=== PATIENT | female | born 1945 | race Caucasian/White ===

== ENCOUNTER → 2021-03-14 10:30 | Outpatient (CLI) | payer MEDICARE, OTHER, SELFPAY ==
[2021-03-14 12:04] LABS: Erythrocyte Sedimentation Rate 4 MM/HR (0-20)
[2021-03-14 12:13] LABS: Add Manual Diff / Slide Review NO; Basophils Absolute Auto 0 /uL (0-100); Basophils Percent Auto 0.5 % (0-2); Eosinophils Absolute Auto 200 /uL (0-450); Eosinophils Percent Auto 1.9 % (2-4); Hematocrit 40.7 % (36-46); Hemoglobin 13.6 g/dL (12.0-16.0); Lymphocytes Absolute Auto 1300 /uL (1100-4500); Lymphocytes Percent Auto 15.5 % (25-40); Mean Corpuscular HGB Conc 33.5 % (30-36); Mean Corpuscular Hemoglobin 30.6 PG (26-34); Mean Corpuscular Volume 91.5 fL (80-100); Monocytes Absolute Auto 600 /uL (0-900); Monocytes Percent Auto 7.3 % (3-14); Neutrophils Absolute Auto 6500 /uL (1500-7000); Neutrophils Percent Auto 74.8 % (50-75); Platelet Count 219 X10^3/uL (150-400); Red Blood Cell Count 4.45 X10^6/uL (4.0-5.2); Red Cell Distribution Width 15.3 % (11.6-14.8); White Blood Cell Count 8.7 X10^3/uL (4.5-11.0)
[2021-03-14 13:05] LABS: Aspartate Aminotransferase 31 IU/L (14-36); BUN Creatinine Ratio 26.9 (6-22); Blood Urea Nitrogen 14 mg/dL (7-17); C-Reactive Protein Quant 0.7 mg/dL (<1.0); Calcium 9.5 mg/dL (8.4-10.2); Carbon Dioxide 33 mmol/L (22-32); Chloride 100 mmol/L (98-107); Estimated Glomerular Filt Rate > 60.0 mL/min (>60); Glucose 88 mg/dL (80-110); HEMOLYSIS < 15 (0-50); Potassium 4.1 mmol/L (3.4-5.1); Sodium 138 mmol/L (137-145)
[2021-03-15 05:26] LABS: Immunoglobulin A 86 mg/dL (64-422); Immunoglobulin G, Quantitative 798 mg/dL (586-1602); Immunoglobulin M, Quantitative 46 mg/dL (26-217)
== END ==
PROVIDERS: Referring Provider Internal Medicine Rheumatology; Visit Provider Internal Medicine Rheumatology
DX: M06.09 Rheumatoid arthritis without rheumatoid factor, multiple sites (principal); D64.9 Anemia, unspecified; R79.82 Elevated C-reactive protein (CRP); Z79.52 Long term (current) use of systemic steroids; Z79.899 Other long term (current) drug therapy
CPT/HCPCS: 36415; 80048; 82784; 84450; 85025; 85651; 86140

== ENCOUNTER 2021-07-19 09:47 | Emergency (ER) | payer MEDICARE, OTHER, SELFPAY ==
[2021-07-19 09:58] VITALS: BP 194/93; PULSE 102; RESP 16; TEMP 36.6; O2SAT 98; BMI 20.2
--- NOTE | 2021-07-19 10:42 | DI.RAD.S_ITS ---
PROCEDURE: XR LUMBAR SPINE 2-3V INDICATIONS: Lumbar pain history of compression fractures TECHNIQUE: 3 views of the lumbar spine were acquired. COMPARISON: No prior studies are available for review at the time of this dictation. FINDINGS: Bones: 5 [id number] vertebrae are present. There is moderate levoconvex lumbar scoliosis. No focal AP alignment abnormality is seen. No acute vertebral body compression fractures. Mild anterior wedge deformity can be seen of T12 and L1, approximately 10% loss of height at these levels. No suspicious bony lesions. Degenerative changes are seen throughout, with moderate to severe disc space narrowing seen at each lumbar level. Endplate irregularity and sclerosis are seen, which are worst involving the lower lumbar spine. Relatively prominent lower lumbar spine facet arthropathy is seen. Soft tissues: Overlying bowel gas pattern is normal. No suspicious soft tissue calcifications. IMPRESSION: No acute compression deformities can be seen. Mild anterior wedge deformities of T12 and L1 can be seen, without acute features. Moderate levoconvex scoliosis. Multiple levels of prominent lumbar spine degenerative change are seen by plain film. Dictated by: Gideon Stone M.D. on 07/19/2021 at 10:22 Approved by: Gideon Stone M.D. on 07/19/2021 at 10:24
--- NOTE | 2021-07-19 10:42 | ED.BACK ---
HPI - Back Pain/Injury General Chief Complaint: Back Pain/Injury Stated Complaint: back pain Time Seen by Provider: 07/19/21 10:06 Source: patient Mode of arrival: Family Vehicle Limitations: no limitations History of Present Illness HPI Narrative: Patient is a 75-year-old female. Has a history of arthritis. Has had compression fractures in the her back. Has had no recent falls. Over the past several months she has had back discomfort that that has led into muscle spasms. She was seen by her primary doctor. Was given a prescription for Robaxin. She states that the combination of her Robaxin and tramadol has been helping things somewhat however this morning she did not take these medications. She was sitting on the toilet. Was unable to get up because the discomfort. Decided to come to the emergency department. No urinary symptoms. No fevers. No change in bowel habits. No radiation into her legs. She states that her primary doctor has not discussed with her about further workup to include physical therapy or orthopedics or pain management. Related Data Home Medications Medication Instructions Recorded Confirmed One a day vitamin PO 03/25/21 07/15/21 Vitamin D3 300 IU PO DAILY 03/25/21 07/15/21 bone up PO 03/25/21 07/15/21 rituximab-abbs 10 mg/mL IV 03/25/21 07/15/21 intravenous solution vitamin c 200 IU PO 03/25/21 07/15/21 zinc 50 mg tablet 50 mg PO DAILY 03/25/21 07/15/21 Previous Rx's Medication Instructions Recorded benazepril 10 mg tablet 10 mg PO DAILY #90 tab 04/02/21 carvedilol 25 mg tablet 25 mg PO BID #180 tab 04/02/21 levothyroxine 100 mcg tablet 100 mcg PO DAILY #90 tab 04/02/21 prednisone 5 mg tablet 5 mg PO .AM #90 tab 04/02/21 gabapentin 300 mg capsule See Rx Instructions .ROUTE 06/25/21 .COMPLEX #240 cap prednisone 1 mg tablet See Rx Instructions .ROUTE 07/10/21 .COMPLEX #180 tab tramadol 50 mg tablet See Rx Instructions .ROUTE 07/10/21 .COMPLEX #60 tab methocarbamol 500 mg tablet See Rx Instructions PO TID #90 tab 07/15/21 Allergies Allergy/AdvReac Type Severity Reaction Status Date / Time Sulfa (Sulfonamide Allergy Mild Rashh Verified 07/15/21 10:28 Antibiotics) Review of Systems Constitutional Constitutional: Denies fever(s) Gastrointestinal Gastrointestinal: Reports as per HPI and Reports system reviewed and no additional complaints, except as documented Genitourinary Genitourinary: Reports system reviewed and no additional complaints, except as documented and Reports as per HPI Musculoskeletal Musculoskeletal: Reports system reviewed and no additional complaints, except as documented and Reports as per HPI Integumentary/Breasts Skin/Breast: Reports system reviewed and no additional complaints, except as documented Neurologic Neurologic: Reports system reviewed and no additional complaints, except as documented and Reports as per HPI Hematologic/Lymphatic On Anticoagulants: No Patient History Medical History Acne Alopecia (~1961) Sorto's esophagus (~2011) Chicken pox Chronic bilateral low back pain without sciatica Diastolic heart failure (~2016) Eczema (~2019) Foot pain (~1987) Heavy menstrual period HTN (hypertension) (~2009) Hypothyroidism (acquired) (~1969) Lumbar region somatic dysfunction Measles Pelvic somatic dysfunction Restless leg syndrome (~1999) Rheumatoid arthritis (~1987) Sacral region somatic dysfunction Segmental and somatic dysfunction of abdomen and other regions Shoulder pain (~1987) Skin cancer, basal cell (~2011) Thoracic region somatic dysfunction Surgical History (Updated 04/01/21 @ 22:06 by Macrina Foster) Anesthesia History of hysterectomy (~1973) History of thumb surgery History of tonsillectomy Family History (Updated 04/01/21 @ 22:08 by Macrina Foster) Father History of heart disease Hypertension Brother Cancer Sister Osteoarthritis Exam Initial Vital Signs Initial Vital Signs: Vital Signs Temperature 97.8 F 07/19/21 09:58 Pulse Rate 102 H 07/19/21 09:58 Respiratory Rate 16 07/19/21 09:58 Blood Pressure 194/93 H 07/19/21 09:58 Pulse Oximetry 98 07/19/21 09:58 Const General: cooperative and comfortable HENMT Head: normal to inspection and normocephalic Back/Spine/Pelvis Thoracic/Lumbar Spine: paraspinal tenderness (Lumbar) and No thoracic spinal tenderness Sacroiliac Joints: nontender Sacrum: no tenderness Skin General: no rashes or lesions noted Neuro General: patient alert, patient awake, patient oriented x3 and moves all extremities Extrem General: normal to inspection and capillary refill normal Psych Appearance: grossly normal and well kempt Course Orders Ordered: ED Orders 07/19/21 10:42 XR lumbar spine 2-3V Stat Vital Signs Vital signs: Vital Signs - 8 hr 07/19/21 11:47 Pulse Rate 89 Respiratory Rate 18 Pulse Oximetry 96 [facility] - Back Pain/Injury Imaging Data Lumbar spine x-ray: Radiologist's Impression: [address] [address] XRay Report Signed Patient: Julieta Pacheco MR#: [id number] : 1945 Acct:[id number] Age/Sex: 75 / F Date of Service: 07/19/21 Loc: ED Accession Number: [id number] ?? Procedure: XR lumbar spine 2-3V Ordering Provider: Kavin Roberts D.O. PROCEDURE:? XR LUMBAR SPINE 2-3V ? INDICATIONS:? Lumbar pain history of compression fractures ? TECHNIQUE:? 3 views of the lumbar spine were acquired.? ? COMPARISON:? No prior studies are available for review at the time of this dictation. ? FINDINGS:? ? Bones:? 5 [id number] vertebrae are present.? There is moderate levoconvex lumbar scoliosis.? No focal AP alignment abnormality is seen.? ? No acute vertebral body compression fractures.? Mild anterior wedge deformity can be seen of T12 and L1, approximately 10% loss of height at these levels.? No suspicious bony lesions.? ? Degenerative changes are seen throughout, with moderate to severe disc space narrowing seen at each lumbar level.? Endplate irregularity and sclerosis are seen, which are worst involving the lower lumbar spine.? Relatively prominent lower lumbar spine facet arthropathy is seen. ? Soft tissues:? Overlying bowel gas pattern is normal.? No suspicious soft tissue calcifications.? ? ? IMPRESSION:? No acute compression deformities can be seen. ? Mild anterior wedge deformities of T12 and L1 can be seen, without acute features. ? Moderate levoconvex scoliosis. ? Multiple levels of prominent lumbar spine degenerative change are seen by plain film. ? ? Dictated by: Gideon Stone M.D. on 07/19/2021 at 10:22 ? ? Approved by: Gideon Stone M.D. on 07/19/2021 at 10:24? MDM Narrative Medical decision making narrative: X-ray does not show any signs of acute pathology. I have low suspicion for cauda equina. No signs of fracture. Skin is unremarkable. I do suspect this is musculoskeletal etiology most likely from her underlying arthritis. I did discuss this with her. Will have her contact her primary doctor for a follow-up and to discuss further referrals if necessary or further radiologic studies. She was given return precautions. She expressed understanding agreement. Discharge Plan Departure Patient Disposition: Home Clinical Impression: Lower back pain Instructions: DI for Low Back Pain Activity Restrictions/Additional Instructions: Recommend that you continue to take all of your medications as directed. Does appear that you have a refill of the Robaxin. Please start taking it like we discussed. Contact your primary doctor for follow-up as you may need referral to see specialist return to the emergency department for any new or worsening symptoms Prescriptions: No Action prednisone 5 mg tablet 5 mg PO .AM Qty: 90 0RF benazepril 10 mg tablet 10 mg PO DAILY Qty: 90 0RF carvedilol 25 mg tablet 25 mg PO BID Qty: 180 0RF Rx Instructions: must administer with a meal/food levothyroxine 100 mcg tablet 100 mcg PO DAILY Qty: 90 0RF gabapentin 300 mg capsule See Rx Instructions .ROUTE .COMPLEX Qty: 240 0RF Dose Instruction: TAKE 3 CAPSULES BY MOUTH AT BEDTIME Rx Instructions: TAKE 3 CAPSULES BY MOUTH AT BEDTIME tramadol 50 mg tablet See Rx Instructions .ROUTE .COMPLEX Qty: 60 0RF Rx Instructions: Take 1-2 tablets by mouth twice daily as needed for pain prednisone 1 mg tablet See Rx Instructions .ROUTE .COMPLEX Qty: 180 0RF Dose Instruction: TAKE 2 TABLETS BY MOUTH ONCE DAILY IN THE EVENING Rx Instructions: TAKE 2 TABLETS BY MOUTH ONCE DAILY IN THE EVENING One a day vitamin PO 0RF Vitamin D3 300 IU PO DAILY 0RF zinc 50 mg tablet 50 mg PO DAILY 0RF vitamin c 200 IU PO 0RF bone up PO 0RF rituximab-abbs 10 mg/mL solution IV 0RF methocarbamol 500 mg tablet See Rx Instructions PO TID Qty: 90 1RF Rx Instructions: Take 1/2 to 1 tablet, PO three times a day; Referrals: Dharmesh Lundy DO [Primary Care Provider] -
[2021-07-19 11:47] VITALS: PULSE 89; RESP 18; O2SAT 96
== END 2021-07-19 12:07 | disposition home or self-care (01) ==
PROVIDERS: Emergency Provider Emergency Medicine; PCP Family Medicine
DX: M54.50 Low back pain, unspecified (principal); M19.90 Unspecified osteoarthritis, unspecified site
CPT/HCPCS: 72100; 99281; 99283

== ENCOUNTER → 2021-08-05 09:37 | Outpatient (CLI) | payer MEDICARE, OTHER, SELFPAY | PROVIDERS: PCP Family Medicine; Referring Provider Family Medicine; Visit Provider Family Medicine | DX: M81.0 Age-related osteoporosis without current pathological fracture (principal); Z78.0 Asymptomatic menopausal state; E07.9 Disorder of thyroid, unspecified; M06.9 Rheumatoid arthritis, unspecified | CPT/HCPCS: 77080; 77081 ==

== ENCOUNTER 2021-09-17 09:45 | Outpatient (RCR) | payer MEDICARE, OTHER, SELFPAY ==
--- NOTE | 2021-08-11 12:51 | PT.OIE ---
Current Diagnoses Other chronic pain (08/11/21) Low back pain, unspecified (08/11/21) Past Medical History (Last Updated 07/30/21 @ 15:44 by Dharmesh Lundy DO) Acne Alopecia (~1961) Sorto's esophagus (~2011) Chicken pox Chronic bilateral low back pain without sciatica Diastolic heart failure (~2016) Eczema (~2019) Foot pain (~1987) Heavy menstrual period History of hysterectomy (~1973) History of thumb surgery History of tonsillectomy HTN (hypertension) (~2009) Hypothyroidism (acquired) (~1969) Lumbar region somatic dysfunction Measles Osteoporosis Pelvic somatic dysfunction Restless leg syndrome (~1999) Rheumatoid arthritis (~1987) Sacral region somatic dysfunction Segmental and somatic dysfunction of abdomen and other regions Shoulder pain (~1987) Skin cancer, basal cell (~2011) Thoracic region somatic dysfunction Past Surgical History (Last Updated 04/01/21 @ 22:06 by Macrina Foster) Anesthesia History of hysterectomy (~1973) History of thumb surgery History of tonsillectomy Visit Care Team Role Provider Type Dharmesh Lundy DO Attending Provider Physician Family Provider Primary Care Provider Referring Provider Specialty: Family Practice Address: [address] [place] [address] Email: Physical Therapy Initial Evaluation PT-OP-A Visit Information Start: 08/07/21 15:22 Freq: Status: Active Protocol: Document 08/11/21 09:51 MB (Rec: 08/11/21 10:12 [id number]) Out-Patient Physical Therapy Visit Information Visit Information Visit Type Initial Evaluation Visit Note Medicare 09/10 before KX Visit Start Time 09:51 Visit Stop Time 10:30 Total Visit Minutes 39 Visit Number 1 Evaluation Information Evaluation Date 08/11/21 PT-OP-B Current Condition Start: 08/07/21 15:22 Freq: Status: Active Protocol: Document 08/11/21 09:51 MB (Rec: 08/11/21 10:12 MB [id number]) Current Condition History of Current Condition Onset Date One month ago Current Complaints Back pain History of Current Condition Pt states that she may be moving in the spring. Her 102 y/o mother lives with her. She has a condo with 18 steps. One day about a month ago, she did a lot of steps over a short period of time. She did a lot of shopping another day. She was given some gentle exercises by the doctor and that flared her up. She was given some muscle relaxers and they were helpful. Pt has a history of RA. She has RA in many joints including hands, shoulders and left knee. Her feet are really bad. That limits her walking. She has trouble with ADLs. She has a walk-in shower and seat in the shower. She has two infusions every six months. PMH includes OP and she just had a density exam and the image is in the EMR but there is no report. Pt has a history of decreased ROM in her neck. Pt states that she had history of LBP when standing and cooking. She thinks she had some muscle spasming as well that is better since the muscle relaxers. She has a history of falls about a year ago when she was on BP medication that she thinks dropped her BP. When she is semi reclined in the bed and tries to lift her hips, she has back pain. When she moves from sitting to standing, she gets LBP across the bottom of her back. Pt denies numbness and tingling in her legs. Pt is not a pool person. Pt reports 1-6/10 pain in her LB. She has pain in many joints from RA. Prior Treatments and Tests Lumbar x-ray 07/19/21: IMPRESSION: No acute compression deformities can be seen. Mild anterior wedge deformities of T12 and L1 can be seen, without acute features. Moderate levoconvex scoliosis. Multiple levels of prominent lumbar spine degenerative change are seen by plain film. Personal Factors Other Personal Factors That May Effect To decrease pain and to walk a Therapy/Recovery little more PT-OP-C Subjective Start: 08/07/21 15:22 Freq: Status: Active Protocol: Document 08/11/21 09:51 MB (Rec: 08/11/21 10:12 MB [id number]) OP-PT Subjective Patient Comments Patient Comments See history of current conditions Patient Questionnaires Oswestry Low Back Index Oswestry Score 19 Oswestry Impairment 20 to 39% Impaired (Score 20- 39) PT-OP-J Posture/Palpation/Skin Start: 08/07/21 15:22 Freq: Status: Active Protocol: Document 08/11/21 09:51 MB (Rec: 08/11/21 12:51 MB [id number]) Posture Evaluation Comments Posture Comments Standing in socks: foot and toe deformities, greater on the left and many toe surfaces not touching the floor and changing WB through the feet, flattened spine in general with decrease cervical lordosis, Dowager's hump, decreased thoracic kyphosis and lumbar lordosis, changes upper lumbar spine with some shifting of vertebral and pelvic posture with left iliac crest mildly higher than the right. Pt in long pants and left knee is mildly larger than the right, some left calf changes. PT-OP-K Range of Motion Start: 08/07/21 15:22 Freq: Status: Active Protocol: Document 08/11/21 09:51 MB (Rec: 08/11/21 12:51 MB [id number]) Shoulder Goniometric Range of Motion Shoulder ROM Limitations Comments B active shoulder flexion very reduced to no more than 60 deg and pt reports of degenerative changes in her shoulders from RA Finger Goniometric Range of Motion Finger ROM Limitations Comments Many finger changes that appear RA in nature Ankle and Foot Goniometric Range of Motion Ankle and Foot ROM Limitations Comments Many foot and toe changes that appear RA in nature PT-OP-Q Treatments Start: 08/07/21 15:22 Freq: Status: Active Protocol: Document 08/11/21 09:51 MB (Rec: 08/11/21 11:19 MB [id number]) Self-Care/Home Management Treatment Education Patient Education Body Mechanics,Home Exercise Program,Pain Management, Posture,Safety Other Education Benefits of log rolling if possible, PT's concerns about her spinal integrity in setting of old compression fractures, OA, possible muscle guarding to protect joints, benefits of bed that raises and lowers at the head PT-OP-T Assessment and Plan Start: 08/07/21 15:22 Freq: Status: Active Protocol: Document 08/11/21 09:51 MB (Rec: 08/11/21 12:51 MB [id number]) Physical Therapy Assessment Rehab Potential Rehabilitation Potential Fair Evaluation Complexity Number of Personal Factors/Comorbidities 1-2 Number of Body Systems Impaired 3 Clinical Presentation at Evaluation Evolving Impairments Impairments Activity Tolerance,Balance, Functional Activities, Functional Mobility,Gait,Pain, Posture,ROM,Soft Tissue Mobility,Strength Other Impairments Personal factors include pt has 18 steps to enter her home . She also has her 102 y/o mother living with her. Body systems affected include musculoskeletal, neuromuscular and metabolic. Her clinical presentation is evolving in setting of OP, RA, history of compression fractures. Other Concerns Fall Risk Yes Goals 4 School Office Assistant Goal (LTG) Pt will present with an improved Oswestery LBP score to reflect no more than 30% impairment to improve pain and quality of life by 10/14/21. LTG Duration 8 weeks 3 School Office Assistant Goal (LTG) Pt will perform WNLs on a standardized balance test to decrease fall risk by 10/14/21. LTG Duration 8 weeks 2 Residential Goal (LTG) Pt will perform progressive HEP with I including gentle flexibility, core and LE strengthening, breathing and relaxation and balance exercises to improve pain and mobility by 10/14/21. LTG Duration 8 weeks 1 School Office Assistant Goal (LTG) Pt will gait train at least 1200 feet in 6 minutes without AD to improve community ambulation by 10/14/21. LTG Duration 8 weeks Assessment Summary Assessment Pt is a 75 y/o female presenting with joint and spinal changes in setting of RA, OP and history of lumbar compression fractures per pt. Pt presents with imbalance with gait and reports of B foot pain, left knee pain, shoulder pain that wakes her up at night and newer onset of bad lumbar pain that prevents her from walking far, and is worse with transitional movements of getting out of bed and sit to stand. Her shoulder changes and pain inhibit her ability to log roll and PT is concerned about possibility of lumbar compression fracture with repeated long sit to long lie to get in and OOB. PT is also concerned about fall risk and risk of injury if she does fall. MMT deferred today d/t pain in many joints and AROM spine also deferred d/t PT concern about spinal frailty. She will benefit from PT to improve gentle flexibility and core strength and will likely start in Monika Chuckie-type of program, starting in hook lying to protect her spine, if her shoulders will allow her to get off the plinth in a safe way to protect her lumbar spine and shoulders. Physical Therapy Plan Frequency and Duration Frequency of Treatment 2x/Week Duration of Treatment 8 weeks Plan of Care Start Date 08/11/21 Plan of Care End Date 10/14/21 Therapeutic Interventions Therapeutic Interventions Aquatic Therapy,Balance Training,Canalithic Repositioning,Gait Training, Home Exercise Program,Manual Therapy,Neuromuscular Re- education,Patient/Caregiver Education,Self-Care/Home Management,Soft Tissue Mobilization,Therapeutic Activities,Therapeutic Exercises Modalities Cold Pack/Ice Massage,Hot Packs Next Visit Focus/Plan Next Note Type Treatment Note Next Visit Plan Consider pelvic realignment exercises and diaphragm breathing
--- NOTE | 2021-08-11 12:51 | PT.OPPOC ---
Physical, Occupational & Speech Therapy At [facility] Current Diagnoses Other chronic pain (08/11/21) Low back pain, unspecified (08/11/21) Visit Care Team Role Provider Type Dharmesh Lundy DO Attending Provider Physician Family Provider Primary Care Provider Referring Provider Specialty: Family Practice Address: [address] [place] [address], [facility] Email: Plan Of Care PT-OP-T Assessment and Plan Start: 08/07/21 15:22 Freq: Status: Active Protocol: Document 08/11/21 09:51 MB (Rec: 08/11/21 12:51 MB [id number]) Physical Therapy Assessment Rehab Potential Rehabilitation Potential Fair Evaluation Complexity Number of Personal Factors/Comorbidities 1-2 Number of Body Systems Impaired 3 Clinical Presentation at Evaluation Evolving Impairments Impairments Activity Tolerance,Balance, Functional Activities, Functional Mobility,Gait,Pain, Posture,ROM,Soft Tissue Mobility,Strength Other Impairments Personal factors include pt has 18 steps to enter her home . She also has her 102 y/o mother living with her. Body systems affected include musculoskeletal, neuromuscular and metabolic. Her clinical presentation is evolving in setting of OP, RA, history of compression fractures. Other Concerns Fall Risk Yes Goals 4 Residential Goal (LTG) Pt will present with an improved Oswestery LBP score to reflect no more than 30% impairment to improve pain and quality of life by 10/14/21. LTG Duration 8 weeks 3 Milking Machine Mechanic Goal (LTG) Pt will perform WNLs on a standardized balance test to decrease fall risk by 10/14/21. LTG Duration 8 weeks 2 Milking Machine Mechanic Goal (LTG) Pt will perform progressive HEP with I including gentle flexibility, core and LE strengthening, breathing and relaxation and balance exercises to improve pain and mobility by 10/14/21. LTG Duration 8 weeks 1 Milking Machine Mechanic Goal (LTG) Pt will gait train at least 1200 feet in 6 minutes without AD to improve community ambulation by 10/14/21. LTG Duration 8 weeks Assessment Summary Assessment Pt is a 75 y/o female presenting with joint and spinal changes in setting of RA, OP and history of lumbar compression fractures per pt. Pt presents with imbalance with gait and reports of B foot pain, left knee pain, shoulder pain that wakes her up at night and newer onset of bad lumbar pain that prevents her from walking far, and is worse with transitional movements of getting out of bed and sit to stand. Her shoulder changes and pain inhibit her ability to log roll and PT is concerned about possibility of lumbar compression fracture with repeated long sit to long lie to get in and OOB. PT is also concerned about fall risk and risk of injury if she does fall. MMT deferred today d/t pain in many joints and AROM spine also deferred d/t PT concern about spinal frailty. She will benefit from PT to improve gentle flexibility and core strength and will likely start in Monika Chuckie-type of program, starting in hook lying to protect her spine, if her shoulders will allow her to get off the plinth in a safe way to protect her lumbar spine and shoulders. Physical Therapy Plan Frequency and Duration Frequency of Treatment 2x/Week Duration of Treatment 8 weeks Plan of Care Start Date 08/11/21 Plan of Care End Date 10/14/21 Therapeutic Interventions Therapeutic Interventions Aquatic Therapy,Balance Training,Canalithic Repositioning,Gait Training, Home Exercise Program,Manual Therapy,Neuromuscular Re- education,Patient/Caregiver Education,Self-Care/Home Management,Soft Tissue Mobilization,Therapeutic Activities,Therapeutic Exercises Modalities Cold Pack/Ice Massage,Hot Packs Next Visit Focus/Plan Next Note Type Treatment Note Next Visit Plan Consider pelvic realignment exercises and diaphragm breathing Plan of Care Dates Plan of Care Start Date 08/11/21 Plan of Care End Date 10/14/21 Electronically Signed by: Viviane Lombardi PT 08/11/21 2647 Please Sign and Return: I have reviewed this Plan of Care and certify that the skilled therapy services above are required to meet the patient?s needs. Physician Signature Date Printed Name and Credentials Clinical Instructor Signature Printed Name and Credentials
--- NOTE | 2021-08-25 09:45 | PT.OTN ---
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 Seen in EMR under reports. Original Note: Current Diagnoses Other chronic pain (08/25/21) Low back pain, unspecified (08/25/21) Physical Therapy Treatment Note PT-OP-A Visit Information Start: 08/07/21 15:22 Freq: Status: Active Protocol: Document 08/25/21 09:05 SP (Rec: 08/25/21 09:51 SP [id number]) Out-Patient Physical Therapy Visit Information Visit Information Visit Type Initial Evaluation Visit Note Medicare 10/11 before KX Daughter attended tx for awareness of mom's therapy and ex. Visit Start Time 09:05 Visit Stop Time 09:45 Total Visit Minutes 40 Visit Number 2 Number of CABLE SPLICER APPRENTICE Visits 1 Evaluation Information Evaluation Date 08/11/21 PT-OP-B Current Condition Start: 08/07/21 15:22 Freq: Status: Active Protocol: Document 08/11/21 09:51 MB (Rec: 08/11/21 10:12 MB [id number]) Current Condition History of Current Condition Onset Date One month ago Current Complaints Back pain History of Current Condition Pt states that she may be moving in the spring. Her 102 y/o mother lives with her. She has a condo with 18 steps. One day about a month ago, she did a lot of steps over a short period of time. She did a lot of shopping another day. She was given some gentle exercises by the doctor and that flared her up. She was given some muscle relaxers and they were helpful. Pt has a history of RA. She has RA in many joints including hands, shoulders and left knee. Her feet are really bad. That limits her walking. She has trouble with ADLs. She has a walk-in shower and seat in the shower. She has two infusions every six months. PMH includes OP and she just had a density exam and the image is in the EMR but there is no report. Pt has a history of decreased ROM in her neck. Pt states that she had history of LBP when standing and cooking. She thinks she had some muscle spasming as well that is better since the muscle relaxers. She has a history of falls about a year ago when she was on BP medication that she thinks dropped her BP. When she is semi reclined in the bed and tries to lift her hips, she has back pain. When she moves from sitting to standing, she gets LBP across the bottom of her back. Pt denies numbness and tingling in her legs. Pt is not a pool person. Pt reports 1-6/10 pain in her LB. She has pain in many joints from RA. Prior Treatments and Tests Lumbar x-ray 07/19/21: IMPRESSION: No acute compression deformities can be seen. Mild anterior wedge deformities of T12 and L1 can be seen, without acute features. Moderate levoconvex scoliosis. Multiple levels of prominent lumbar spine degenerative change are seen by plain film. Personal Factors Other Personal Factors That May Effect To decrease pain and to walk a Therapy/Recovery little more PT-OP-C Subjective Start: 08/07/21 15:22 Freq: Status: Active Protocol: Document 08/25/21 09:05 SP (Rec: 08/25/21 09:51 SP [id number]) OP-PT Subjective Patient Comments Patient Comments Pt reported sorry cancelled due to bad weather. Pt reports always has pain when wakes up in the morning until gets up and moves around, gets coffee. Pt stated likes to sit up long sitting in bed with pillows under knees to support low back alignment but still gets back pain after a bit, personal goal to be able to read in bed without pain. PT-OP-J Posture/Palpation/Skin Start: 08/07/21 15:22 Freq: Status: Active Protocol: Document 08/11/21 09:51 MB (Rec: 08/11/21 12:51 MB [id number]) Posture Evaluation Comments Posture Comments Standing in socks: foot and toe deformities, greater on the left and many toe surfaces not touching the floor and changing WB through the feet, flattened spine in general with decrease cervical lordosis, Dowager's hump, decreased thoracic kyphosis and lumbar lordosis, changes upper lumbar spine with some shifting of vertebral and pelvic posture with left iliac crest mildly higher than the right. Pt in long pants and left knee is mildly larger than the right, some left calf changes. PT-OP-K Range of Motion Start: 08/07/21 15:22 Freq: Status: Active Protocol: Document 12/20/21 09:51 MB (Rec: 08/11/21 12:51 MB [id number]) Shoulder Goniometric Range of Motion Shoulder ROM Limitations Comments B active shoulder flexion very reduced to no more than 60 deg and pt reports of degenerative changes in her shoulders from RA Finger Goniometric Range of Motion Finger ROM Limitations Comments Many finger changes that appear RA in nature Ankle and Foot Goniometric Range of Motion Ankle and Foot ROM Limitations Comments Many foot and toe changes that appear RA in nature PT-OP-Q Treatments Start: 08/07/21 15:22 Freq: Status: Active Protocol: Document 08/25/21 09:05 SP (Rec: 08/25/21 09:51 SP [id number]) Therapeutic Exercises Supine Exercises active HS stretch w/ AP Supine Exercise Name added to HEP Side bilateral Equipment Used towel grasp behind thigh Reps/Minutes x5 Comments good feedback response diaphramatic breath Supine Exercise Name added to HEP Equipment Used hands over abdomen Reps/Minutes x5 Comments cued slow in nose, out mouth pelvic realignment ex Supine Exercise Name added to HEP Side bilateral Equipment Used use towel w/ hip ext 90/90 isometric, small ball (will try find vs suggested large toilet/ paper towel roll) Reps/Minutes 5 sec hold x3 each Comments cued slow engagement and release each, small range Standing Exercises self STMs Standing Exercise Name paraspinals- added to HEP Side bilateral Equipment Used at wall Reps/Minutes 10 sec daily + Comments good instant back pain relief Self-Care/Home Management Treatment Education Patient Education Body Mechanics,Pain Management ,Posture Other Education CABLE SPLICER APPRENTICE reviewed benefits of log rolling if possible. Pt reports hard to do due to pain and lack of strength with arms to push from bed limits her to do as instructed. TImes spent on long sitting alignment reading in bed: pillows under thighs and pillow wedge for more elevated book/ tablet to decrease hunched/ sacral sitting posture. Cued need sit all way back with pillow behind with upright posture, glad thought pillows under thighs but be aware of sitting posture and looking down can cause back pain and why suggested something support book/ tablet more up in front face level. Better alignment is sitting in chair. Pt and daughter verbalized understanding will look at seated posture and if wedge to hold book more elevated. Intitated pelvic realignment, HS w/ AP stretch, diaphramatic breath and self STMs with ball at wall. PT-OP-T Assessment and Plan Start: 08/07/21 15:22 Freq: Status: Active Protocol: Document 08/25/21 09:05 SP (Rec: 08/25/21 09:51 SP [id number]) Physical Therapy Assessment Goals 4 Halfway Goal (LTG) Pt will present with an improved Oswestery LBP score to reflect no more than 30% impairment to improve pain and quality of life by 10/14/21. LTG Duration 8 weeks 3 Pallet Assembler Goal (LTG) Pt will perform WNLs on a standardized balance test to decrease fall risk by 10/14/21. LTG Duration 8 weeks 2 Halfway Goal (LTG) Pt will perform progressive HEP with I including gentle flexibility, core and LE strengthening, breathing and relaxation and balance exercises to improve pain and mobility by 10/14/21. LTG Duration 8 weeks 1 Halfway Goal (LTG) Pt will gait train at least 1200 feet in 6 minutes without AD to improve community ambulation by 10/14/21. LTG Duration 8 weeks Assessment Summary Assessment Good feedback response to self manual, initiated pelvic realignment and active HS stretch HEP initiated today. Cues for proper form and ease engagement/ release. Good understanding. Wow I can't believe the massage ball on wall was really helpful, will probable use tennis ball has a home first before getting racquetball. Pt responded well and understanding postural alignment seated in bed for back health suggestions. Pt understood bring HEP HOs each tx. Physical Therapy Plan Frequency and Duration Frequency of Treatment 2x/Week Duration of Treatment 8 weeks Plan of Care Start Date 08/11/21 Plan of Care End Date 10/14/21 Therapeutic Interventions Therapeutic Interventions Aquatic Therapy,Balance Training,Canalithic Repositioning,Gait Training, Home Exercise Program,Manual Therapy,Neuromuscular Re- education,Patient/Caregiver Education,Self-Care/Home Management,Soft Tissue Mobilization,Therapeutic Activities,Therapeutic Exercises Modalities Cold Pack/Ice Massage,Hot Packs Next Visit Focus/Plan Next Note Type Treatment Note Next Visit Plan Recheck HEP. Next tx: Initiate supine LS rotation flexibility for AROM assist back pain first thing in AM. progress core and balance.
--- NOTE | 2021-08-27 10:31 | PT.OTN ---
Current Diagnoses Other chronic pain (08/27/21) Low back pain, unspecified (08/27/21) Physical Therapy Treatment Note PT-OP-A Visit Information Start: 08/07/21 15:22 Freq: Status: Active Protocol: Document 08/27/21 09:45 MB (Rec: 08/27/21 10:30 MB [id number]) Out-Patient Physical Therapy Visit Information Visit Information Visit Type Treatment Note Visit Note Medicare 11/08 before KX Visit Start Time 09:45 Visit Stop Time 10:30 Total Visit Minutes 45 Visit Number 3 Number of PIPE FITTER APPRENTICE Visits 0 Evaluation Information Evaluation Date 08/11/21 PT-OP-B Current Condition Start: 08/07/21 15:22 Freq: Status: Active Protocol: Document 08/11/21 09:51 MB (Rec: 08/11/21 10:12 MB [id number]) Current Condition History of Current Condition Onset Date One month ago Current Complaints Back pain History of Current Condition Pt states that she may be moving in the spring. Her 102 y/o mother lives with her. She has a condo with 18 steps. One day about a month ago, she did a lot of steps over a short period of time. She did a lot of shopping another day. She was given some gentle exercises by the doctor and that flared her up. She was given some muscle relaxers and they were helpful. Pt has a history of RA. She has RA in many joints including hands, shoulders and left knee. Her feet are really bad. That limits her walking. She has trouble with ADLs. She has a walk-in shower and seat in the shower. She has two infusions every six months. PMH includes OP and she just had a density exam and the image is in the EMR but there is no report. Pt has a history of decreased ROM in her neck. Pt states that she had history of LBP when standing and cooking. She thinks she had some muscle spasming as well that is better since the muscle relaxers. She has a history of falls about a year ago when she was on BP medication that she thinks dropped her BP. When she is semi reclined in the bed and tries to lift her hips, she has back pain. When she moves from sitting to standing, she gets LBP across the bottom of her back. Pt denies numbness and tingling in her legs. Pt is not a pool person. Pt reports 1-6/10 pain in her LB. She has pain in many joints from RA. Prior Treatments and Tests Lumbar x-ray 07/19/21: IMPRESSION: No acute compression deformities can be seen. Mild anterior wedge deformities of T12 and L1 can be seen, without acute features. Moderate levoconvex scoliosis. Multiple levels of prominent lumbar spine degenerative change are seen by plain film. Personal Factors Other Personal Factors That May Effect To decrease pain and to walk a Therapy/Recovery little more PT-OP-C Subjective Start: 08/07/21 15:22 Freq: Status: Active Protocol: Document 08/27/21 09:45 MB (Rec: 08/27/21 10:30 MB [id number]) OP-PT Subjective Patient Comments Patient Comments Pt states she didn't use the towel for her hamstring stretch and this caused her to pull a muscle in the right side of her neck. PT-OP-J Posture/Palpation/Skin Start: 08/07/21 15:22 Freq: Status: Active Protocol: Document 08/11/21 09:51 MB (Rec: 08/11/21 12:51 MB [id number]) Posture Evaluation Comments Posture Comments Standing in socks: foot and toe deformities, greater on the left and many toe surfaces not touching the floor and changing WB through the feet, flattened spine in general with decrease cervical lordosis, Dowager's hump, decreased thoracic kyphosis and lumbar lordosis, changes upper lumbar spine with some shifting of vertebral and pelvic posture with left iliac crest mildly higher than the right. Pt in long pants and left knee is mildly larger than the right, some left calf changes. PT-OP-K Range of Motion Start: 08/07/21 15:22 Freq: Status: Active Protocol: Document 08/11/21 09:51 MB (Rec: 08/11/21 12:51 MB [id number]) Shoulder Goniometric Range of Motion Shoulder ROM Limitations Comments B active shoulder flexion very reduced to no more than 60 deg and pt reports of degenerative changes in her shoulders from RA Finger Goniometric Range of Motion Finger ROM Limitations Comments Many finger changes that appear RA in nature Ankle and Foot Goniometric Range of Motion Ankle and Foot ROM Limitations Comments Many foot and toe changes that appear RA in nature PT-OP-Q Treatments Start: 08/07/21 15:22 Freq: Status: Active Protocol: Document 08/27/21 09:45 MB (Rec: 08/27/21 10:30 MB [id number]) Therapeutic Exercises Supine Exercises Lumbar rotation, gentle Comments Gentle reps today to help with pain in bed active HS stretch w/ AP Supine Exercise Name Changed handout instructions Side bilateral Equipment Used Towel behind thigh Comments 1 rep, 30 APs diaphramatic breath Equipment Used Hands over abdomen Reps/Minutes 10 slow breaths Comments Cues that she can breath in and out through nose only if she likes pelvic realignment ex Side bilateral Equipment Used Towel use for third exercise Comments 5 rep, 3 sec hold all exercises Standing Exercises self STMs Side bilateral Comments Paraspinals and glutes Manual Therapy Treatment Other Other Manual Treatments Positional release and STM B lumbar paraspinals and glutes PT-OP-T Assessment and Plan Start: 08/07/21 15:22 Freq: Status: Active Protocol: Document 08/27/21 09:45 MB (Rec: 08/27/21 10:30 MB [id number]) Physical Therapy Assessment Rehab Potential Rehabilitation Potential Fair Evaluation Complexity Number of Personal Factors/Comorbidities 1-2 Number of Body Systems Impaired 3 Clinical Presentation at Evaluation Evolving Impairments Impairments Activity Tolerance,Balance, Functional Activities, Functional Mobility,Gait,Pain, Posture,ROM,Soft Tissue Mobility,Strength Other Impairments Personal factors include pt has 18 steps to enter her home . She also has her 102 y/o mother living with her. Body systems affected include musculoskeletal, neuromuscular and metabolic. Her clinical presentation is evolving in setting of OP, RA, history of compression fractures. Other Concerns Fall Risk Yes Goals 4 Manual Winder Goal (LTG) Pt will present with an improved Oswestery LBP score to reflect no more than 30% impairment to improve pain and quality of life by 10/14/21. LTG Duration 8 weeks 3 Manual Winder Goal (LTG) Pt will perform WNLs on a standardized balance test to decrease fall risk by 10/14/21. LTG Duration 8 weeks 2 Half-Way Goal (LTG) Pt will perform progressive HEP with I including gentle flexibility, core and LE strengthening, breathing and relaxation and balance exercises to improve pain and mobility by 10/14/21. LTG Duration 8 weeks 1 Half-Way Goal (LTG) Pt will gait train at least 1200 feet in 6 minutes without AD to improve community ambulation by 10/14/21. LTG Duration 8 weeks Assessment Summary Assessment Reviewed exercises and added gentle lumbar rotation today. She tolerated manual work well and her glutes were tight with manual work. Physical Therapy Plan Frequency and Duration Frequency of Treatment 2x/Week Duration of Treatment 8 weeks Plan of Care Start Date 08/11/21 Plan of Care End Date 10/14/21 Therapeutic Interventions Therapeutic Interventions Aquatic Therapy,Balance Training,Canalithic Repositioning,Gait Training, Home Exercise Program,Manual Therapy,Neuromuscular Re- education,Patient/Caregiver Education,Self-Care/Home Management,Soft Tissue Mobilization,Therapeutic Activities,Therapeutic Exercises Modalities Cold Pack/Ice Massage,Hot Packs Next Visit Focus/Plan Next Note Type Treatment Note Next Visit Plan Progress core, gentle leg strengthening with clam in hook lying and balance, consider Counterstrain
--- NOTE | 2021-09-01 11:16 | PT.OTN ---
Current Diagnoses Other chronic pain (09/01/21) Low back pain, unspecified (09/01/21) Physical Therapy Treatment Note PT-OP-A Visit Information Start: 08/07/21 15:22 Freq: Status: Active Protocol: Document 09/01/21 10:30 MB (Rec: 09/01/21 11:16 MB [id number]) Out-Patient Physical Therapy Visit Information Visit Information Visit Type Treatment Note Visit Note Medicare 11/08 before KX for 2021 Visit Start Time 10:30 Visit Stop Time 11:15 Total Visit Minutes 45 Visit Number 4 Number of PAYROLL REPRESENTATIVE Visits 0 Evaluation Information Evaluation Date 08/11/21 PT-OP-B Current Condition Start: 08/07/21 15:22 Freq: Status: Active Protocol: Document 08/11/21 09:51 MB (Rec: 08/11/21 10:12 MB [id number]) Current Condition History of Current Condition Onset Date One month ago Current Complaints Back pain History of Current Condition Pt states that she may be moving in the spring. Her 102 y/o mother lives with her. She has a condo with 18 steps. One day about a month ago, she did a lot of steps over a short period of time. She did a lot of shopping another day. She was given some gentle exercises by the doctor and that flared her up. She was given some muscle relaxers and they were helpful. Pt has a history of RA. She has RA in many joints including hands, shoulders and left knee. Her feet are really bad. That limits her walking. She has trouble with ADLs. She has a walk-in shower and seat in the shower. She has two infusions every six months. PMH includes OP and she just had a density exam and the image is in the EMR but there is no report. Pt has a history of decreased ROM in her neck. Pt states that she had history of LBP when standing and cooking. She thinks she had some muscle spasming as well that is better since the muscle relaxers. She has a history of falls about a year ago when she was on BP medication that she thinks dropped her BP. When she is semi reclined in the bed and tries to lift her hips, she has back pain. When she moves from sitting to standing, she gets LBP across the bottom of her back. Pt denies numbness and tingling in her legs. Pt is not a pool person. Pt reports 1-6/10 pain in her LB. She has pain in many joints from RA. Prior Treatments and Tests Lumbar x-ray 07/19/21: IMPRESSION: No acute compression deformities can be seen. Mild anterior wedge deformities of T12 and L1 can be seen, without acute features. Moderate levoconvex scoliosis. Multiple levels of prominent lumbar spine degenerative change are seen by plain film. Personal Factors Other Personal Factors That May Effect To decrease pain and to walk a Therapy/Recovery little more PT-OP-C Subjective Start: 08/07/21 15:22 Freq: Status: Active Protocol: Document 09/01/21 10:30 MB (Rec: 09/01/21 11:16 MB [id number]) OP-PT Subjective Patient Comments Patient Comments Pt states that going up the 18 steps to her house is going better as far as leg pain. PT-OP-J Posture/Palpation/Skin Start: 08/07/21 15:22 Freq: Status: Active Protocol: Document 08/11/21 09:51 MB (Rec: 08/11/21 12:51 MB [id number]) Posture Evaluation Comments Posture Comments Standing in socks: foot and toe deformities, greater on the left and many toe surfaces not touching the floor and changing WB through the feet, flattened spine in general with decrease cervical lordosis, Dowager's hump, decreased thoracic kyphosis and lumbar lordosis, changes upper lumbar spine with some shifting of vertebral and pelvic posture with left iliac crest mildly higher than the right. Pt in long pants and left knee is mildly larger than the right, some left calf changes. PT-OP-K Range of Motion Start: 08/07/21 15:22 Freq: Status: Active Protocol: Document 08/11/21 09:51 MB (Rec: 08/11/21 12:51 MB [id number]) Shoulder Goniometric Range of Motion Shoulder ROM Limitations Comments B active shoulder flexion very reduced to no more than 60 deg and pt reports of degenerative changes in her shoulders from RA Finger Goniometric Range of Motion Finger ROM Limitations Comments Many finger changes that appear RA in nature Ankle and Foot Goniometric Range of Motion Ankle and Foot ROM Limitations Comments Many foot and toe changes that appear RA in nature PT-OP-Q Treatments Start: 08/07/21 15:22 Freq: Status: Active Protocol: Document 09/01/21 10:30 MB (Rec: 09/01/21 11:16 MB [id number]) Therapeutic Exercises Supine Exercises Core progression Supine Exercise Name Abdominal drawing with pelvic tilt, knee rocking, HS, mini march, knee fall Resistance Small bridge x5 and no hold Reps/Minutes 10-20 reps all, focus on form Comments Set position and then all exercises slowly and with thoughtfulness Manual Therapy Treatment Other Other Manual Treatments STM and positional release B vastus lateralis, glutes and hip flexor with most tension in left greater than right vastus lateralis PT-OP-T Assessment and Plan Start: 08/07/21 15:22 Freq: Status: Active Protocol: Document 09/01/21 10:30 MB (Rec: 09/01/21 11:16 MB [id number]) Physical Therapy Assessment Rehab Potential Rehabilitation Potential Fair Evaluation Complexity Number of Personal Factors/Comorbidities 1-2 Number of Body Systems Impaired 3 Clinical Presentation at Evaluation Evolving Impairments Impairments Activity Tolerance,Balance, Functional Activities, Functional Mobility,Gait,Pain, Posture,ROM,Soft Tissue Mobility,Strength Other Impairments Personal factors include pt has 18 steps to enter her home . She also has her 102 y/o mother living with her. Body systems affected include musculoskeletal, neuromuscular and metabolic. Her clinical presentation is evolving in setting of OP, RA, history of compression fractures. Other Concerns Fall Risk Yes Goals 4 Senior Living Goal (LTG) Pt will present with an improved Oswestery LBP score to reflect no more than 30% impairment to improve pain and quality of life by 10/14/21. LTG Duration 8 weeks 3 End Lathe Operator Goal (LTG) Pt will perform WNLs on a standardized balance test to decrease fall risk by 10/14/21. LTG Duration 8 weeks 2 Senior Living Goal (LTG) Pt will perform progressive HEP with I including gentle flexibility, core and LE strengthening, breathing and relaxation and balance exercises to improve pain and mobility by 10/14/21. LTG Duration 8 weeks 1 End Lathe Operator Goal (LTG) Pt will gait train at least 1200 feet in 6 minutes without AD to improve community ambulation by 10/14/21. LTG Duration 8 weeks Assessment Summary Assessment Progressed core today. Con't per plan below. Physical Therapy Plan Frequency and Duration Frequency of Treatment 2x/Week Duration of Treatment 8 weeks Plan of Care Start Date 08/11/21 Plan of Care End Date 10/14/21 Therapeutic Interventions Therapeutic Interventions Aquatic Therapy,Balance Training,Canalithic Repositioning,Gait Training, Home Exercise Program,Manual Therapy,Neuromuscular Re- education,Patient/Caregiver Education,Self-Care/Home Management,Soft Tissue Mobilization,Therapeutic Activities,Therapeutic Exercises Modalities Cold Pack/Ice Massage,Hot Packs Next Visit Focus/Plan Next Note Type Treatment Note Next Visit Plan Gentle lengthening exercise, leg strengthening with clam in hook lying and balance, consider Counterstrain
--- NOTE | 2021-09-04 13:05 | PT.OTN ---
Current Diagnoses Other chronic pain (09/04/21) Low back pain, unspecified (09/04/21) Physical Therapy Treatment Note PT-OP-A Visit Information Start: 08/07/21 15:22 Freq: Status: Active Protocol: Document 09/04/21 12:16 MB (Rec: 09/04/21 13:04 MB [id number]) Out-Patient Physical Therapy Visit Information Visit Information Visit Type Treatment Note Visit Note Medicare 12/09 before KX for 2021 Visit Start Time 12:16 Visit Stop Time 13:00 Total Visit Minutes 44 Visit Number 5 Number of ZONING ASSISTANT Visits 0 Evaluation Information Evaluation Date 08/11/21 PT-OP-B Current Condition Start: 08/07/21 15:22 Freq: Status: Active Protocol: Document 08/11/21 09:51 MB (Rec: 08/11/21 10:12 MB [id number]) Current Condition History of Current Condition Onset Date One month ago Current Complaints Back pain History of Current Condition Pt states that she may be moving in the spring. Her 102 y/o mother lives with her. She has a condo with 18 steps. One day about a month ago, she did a lot of steps over a short period of time. She did a lot of shopping another day. She was given some gentle exercises by the doctor and that flared her up. She was given some muscle relaxers and they were helpful. Pt has a history of RA. She has RA in many joints including hands, shoulders and left knee. Her feet are really bad. That limits her walking. She has trouble with ADLs. She has a walk-in shower and seat in the shower. She has two infusions every six months. PMH includes OP and she just had a density exam and the image is in the EMR but there is no report. Pt has a history of decreased ROM in her neck. Pt states that she had history of LBP when standing and cooking. She thinks she had some muscle spasming as well that is better since the muscle relaxers. She has a history of falls about a year ago when she was on BP medication that she thinks dropped her BP. When she is semi reclined in the bed and tries to lift her hips, she has back pain. When she moves from sitting to standing, she gets LBP across the bottom of her back. Pt denies numbness and tingling in her legs. Pt is not a pool person. Pt reports 1-6/10 pain in her LB. She has pain in many joints from RA. Prior Treatments and Tests Lumbar x-ray 07/19/21: IMPRESSION: No acute compression deformities can be seen. Mild anterior wedge deformities of T12 and L1 can be seen, without acute features. Moderate levoconvex scoliosis. Multiple levels of prominent lumbar spine degenerative change are seen by plain film. Personal Factors Other Personal Factors That May Effect To decrease pain and to walk a Therapy/Recovery little more PT-OP-C Subjective Start: 08/07/21 15:22 Freq: Status: Active Protocol: Document 09/04/21 12:16 MB (Rec: 09/04/21 13:04 MB [id number]) OP-PT Subjective Patient Comments Patient Comments Pt states that she had worse right hip pain after core exercises last treatment date. PT-OP-J Posture/Palpation/Skin Start: 08/07/21 15:22 Freq: Status: Active Protocol: Document 08/11/21 09:51 MB (Rec: 08/11/21 12:51 MB [id number]) Posture Evaluation Comments Posture Comments Standing in socks: foot and toe deformities, greater on the left and many toe surfaces not touching the floor and changing WB through the feet, flattened spine in general with decrease cervical lordosis, Dowager's hump, decreased thoracic kyphosis and lumbar lordosis, changes upper lumbar spine with some shifting of vertebral and pelvic posture with left iliac crest mildly higher than the right. Pt in long pants and left knee is mildly larger than the right, some left calf changes. PT-OP-K Range of Motion Start: 08/07/21 15:22 Freq: Status: Active Protocol: Document 08/11/21 09:51 MB (Rec: 08/11/21 12:51 MB [id number]) Shoulder Goniometric Range of Motion Shoulder ROM Limitations Comments B active shoulder flexion very reduced to no more than 60 deg and pt reports of degenerative changes in her shoulders from RA Finger Goniometric Range of Motion Finger ROM Limitations Comments Many finger changes that appear RA in nature Ankle and Foot Goniometric Range of Motion Ankle and Foot ROM Limitations Comments Many foot and toe changes that appear RA in nature PT-OP-Q Treatments Start: 08/07/21 15:22 Freq: Status: Active Protocol: Document 09/04/21 12:16 MB (Rec: 09/04/21 13:04 [id number]) Therapeutic Exercises Supine Exercises Hook lying clam Side bilateral Resistance Level 1 band around knees Comments 10 reps, cues to squeeze glutes first 1/2 lengthener Side bilateral Comments Pt cannot raise her arms up d/ t RA in shoulders and not too uncomfortable Shoulder flexion Side bilateral Comments Knees bent, cane and no cane, trouble with shoulders and so stopped Scapular retraction with thoracic lift Side bilateral Comments Knees bent, arms straight, hold 5-10 sec diaphramatic breath Comments Knees bent, five reps slowly Neuro Re-Education Treatment Balance Activities FGA Comments FGA score is 10/30, reflecting increased risk for falls. Pt has trouble with regular gait, changing roxanne, head turns, cannot perform tandem without tripping over each foot, and trouble with all other tasks. Pt states that her feet feel like stumps and so sensation is a problem. She also presents with a functional left foot drop. She may benefit from balance training in future PT sessions to improve balance at home PT-OP-T Assessment and Plan Start: 08/07/21 15:22 Freq: Status: Active Protocol: Document 09/04/21 12:16 MB (Rec: 09/04/21 13:04 [id number]) Physical Therapy Assessment Rehab Potential Rehabilitation Potential Fair Evaluation Complexity Number of Personal Factors/Comorbidities 1-2 Number of Body Systems Impaired 3 Clinical Presentation at Evaluation Evolving Impairments Impairments Activity Tolerance,Balance, Functional Activities, Functional Mobility,Gait,Pain, Posture,ROM,Soft Tissue Mobility,Strength Other Impairments Personal factors include pt has 18 steps to enter her home . She also has her 102 y/o mother living with her. Body systems affected include musculoskeletal, neuromuscular and metabolic. Her clinical presentation is evolving in setting of OP, RA, history of compression fractures. Other Concerns Fall Risk Yes Goals 4 Alf Goal (LTG) Pt will present with an improved Oswestery LBP score to reflect no more than 30% impairment to improve pain and quality of life by 10/14/21. LTG Duration 8 weeks 3 Alf Goal (LTG) Pt will perform WNLs on a standardized balance test to decrease fall risk by 10/14/21. LTG Duration 8 weeks 2 Rod Bending Machine Operator Goal (LTG) Pt will perform progressive HEP with I including gentle flexibility, core and LE strengthening, breathing and relaxation and balance exercises to improve pain and mobility by 10/14/21. LTG Duration 8 weeks 1 Alf Goal (LTG) Pt will gait train at least 1200 feet in 6 minutes without AD to improve community ambulation by 10/14/21. LTG Duration 8 weeks Assessment Summary Assessment Monika Noguera-type activities are limited by pt's limited B shoulder range tolerance d/t RA changes. Discussed ideas for treatment progression for strengthening and pt states that she does not think that she can do any band strengthening d/t hands. Will progress per below. She also presents with a lot of imbalance and will add a balance exercise to her program. Anticipate 2-4 more treatments. Physical Therapy Plan Frequency and Duration Frequency of Treatment 2x/Week Duration of Treatment 8 weeks Plan of Care Start Date 08/11/21 Plan of Care End Date 10/14/21 Therapeutic Interventions Therapeutic Interventions Aquatic Therapy,Balance Training,Canalithic Repositioning,Gait Training, Home Exercise Program,Manual Therapy,Neuromuscular Re- education,Patient/Caregiver Education,Self-Care/Home Management,Soft Tissue Mobilization,Therapeutic Activities,Therapeutic Exercises Modalities Cold Pack/Ice Massage,Hot Packs Next Visit Focus/Plan Next Note Type Treatment Note Next Visit Plan Consider LAQ with AP and no other resistance, sit to stands, mini wall slides, corner vs hallway balance tasks
--- NOTE | 2021-09-10 13:40 | PT.OTN ---
Current Diagnoses Other chronic pain (09/10/21) Low back pain, unspecified (09/10/21) Physical Therapy Treatment Note PT-OP-A Visit Information Start: 08/07/21 15:22 Freq: Status: Active Protocol: Document 09/10/21 13:01 MB (Rec: 09/10/21 13:36 MB [id number]) Out-Patient Physical Therapy Visit Information Visit Information Visit Type Treatment Note Visit Note Medicare 01/08 before KX for 2021 Visit Start Time 13:01 Visit Stop Time 13:40 Total Visit Minutes 39 Visit Number 6 Number of TAKE AWAY MAN Visits 0 Evaluation Information Evaluation Date 08/11/21 PT-OP-B Current Condition Start: 08/07/21 15:22 Freq: Status: Active Protocol: Document 08/11/21 09:51 MB (Rec: 08/11/21 10:12 MB [id number]) Current Condition History of Current Condition Onset Date One month ago Current Complaints Back pain History of Current Condition Pt states that she may be moving in the spring. Her 102 y/o mother lives with her. She has a condo with 18 steps. One day about a month ago, she did a lot of steps over a short period of time. She did a lot of shopping another day. She was given some gentle exercises by the doctor and that flared her up. She was given some muscle relaxers and they were helpful. Pt has a history of RA. She has RA in many joints including hands, shoulders and left knee. Her feet are really bad. That limits her walking. She has trouble with ADLs. She has a walk-in shower and seat in the shower. She has two infusions every six months. PMH includes OP and she just had a density exam and the image is in the EMR but there is no report. Pt has a history of decreased ROM in her neck. Pt states that she had history of LBP when standing and cooking. She thinks she had some muscle spasming as well that is better since the muscle relaxers. She has a history of falls about a year ago when she was on BP medication that she thinks dropped her BP. When she is semi reclined in the bed and tries to lift her hips, she has back pain. When she moves from sitting to standing, she gets LBP across the bottom of her back. Pt denies numbness and tingling in her legs. Pt is not a pool person. Pt reports 1-6/10 pain in her LB. She has pain in many joints from RA. Prior Treatments and Tests Lumbar x-ray 07/19/21: IMPRESSION: No acute compression deformities can be seen. Mild anterior wedge deformities of T12 and L1 can be seen, without acute features. Moderate levoconvex scoliosis. Multiple levels of prominent lumbar spine degenerative change are seen by plain film. Personal Factors Other Personal Factors That May Effect To decrease pain and to walk a Therapy/Recovery little more PT-OP-C Subjective Start: 08/07/21 15:22 Freq: Status: Active Protocol: Document 09/10/21 13:01 MB (Rec: 09/10/21 13:36 MB [id number]) OP-PT Subjective Patient Comments Patient Comments Pt states that she feels her exercises have been very helpful. PT-OP-J Posture/Palpation/Skin Start: 08/07/21 15:22 Freq: Status: Active Protocol: Document 08/11/21 09:51 MB (Rec: 08/11/21 12:51 MB [id number]) Posture Evaluation Comments Posture Comments Standing in socks: foot and toe deformities, greater on the left and many toe surfaces not touching the floor and changing WB through the feet, flattened spine in general with decrease cervical lordosis, Dowager's hump, decreased thoracic kyphosis and lumbar lordosis, changes upper lumbar spine with some shifting of vertebral and pelvic posture with left iliac crest mildly higher than the right. Pt in long pants and left knee is mildly larger than the right, some left calf changes. PT-OP-K Range of Motion Start: 08/07/21 15:22 Freq: Status: Active Protocol: Document 08/11/21 09:51 MB (Rec: 08/11/21 12:51 MB [id number]) Shoulder Goniometric Range of Motion Shoulder ROM Limitations Comments B active shoulder flexion very reduced to no more than 60 deg and pt reports of degenerative changes in her shoulders from RA Finger Goniometric Range of Motion Finger ROM Limitations Comments Many finger changes that appear RA in nature Ankle and Foot Goniometric Range of Motion Ankle and Foot ROM Limitations Comments Many foot and toe changes that appear RA in nature PT-OP-Q Treatments Start: 08/07/21 15:22 Freq: Status: Active Protocol: Document 09/10/21 13:01 MB (Rec: 09/10/21 13:36 [id number]) Therapeutic Exercises Supine Exercises Scapular retraction with thoracic lift Side bilateral Comments Performs today for posture Core progression Supine Exercise Name Abdominal drawing with pelvic tilt, knee rocking, HS, mini march, knee fall Resistance Small bridge x5 and no hold Reps/Minutes 10 reps all Comments Set position and then all exercises slowly and with thoughtfulness diaphramatic breath Comments Performs as a rest break between core exercises today Sitting Exercises Sit to stands Comments Pt can perform without hands but would aggrevate knee LAQ with AP Side bilateral Comments 5 reps each leg, alternating with AP performance Neuro Re-Education Treatment Balance Activities FGA activities Comments Sliding fingers along rail and then wall: Pt to stand beside island at home with 1-2 finger tips along the counter as you do the following activities: 1-slow and fast walking; 2- vertical head nods; 3- horizontal head nods; 4- backwards walking; 5-walking with eyes closed. Pt to do 5-8 minutes, 1x/day to 6x/wk PT-OP-T Assessment and Plan Start: 08/07/21 15:22 Freq: Status: Active Protocol: Document 09/10/21 13:01 MB (Rec: 09/10/21 13:36 [id number]) Physical Therapy Assessment Rehab Potential Rehabilitation Potential Fair Evaluation Complexity Number of Personal Factors/Comorbidities 1-2 Number of Body Systems Impaired 3 Clinical Presentation at Evaluation Evolving Impairments Impairments Activity Tolerance,Balance, Functional Activities, Functional Mobility,Gait,Pain, Posture,ROM,Soft Tissue Mobility,Strength Other Impairments Personal factors include pt has 18 steps to enter her home . She also has her 102 y/o mother living with her. Body systems affected include musculoskeletal, neuromuscular and metabolic. Her clinical presentation is evolving in setting of OP, RA, history of compression fractures. Other Concerns Fall Risk Yes Goals 4 Half-Way Goal (LTG) Pt will present with an improved Oswestery LBP score to reflect no more than 30% impairment to improve pain and quality of life by 10/14/21. LTG Duration 8 weeks 3 Supermarket Manager Goal (LTG) Pt will perform WNLs on a standardized balance test to decrease fall risk by 10/14/21. LTG Duration 8 weeks 2 Supermarket Manager Goal (LTG) Pt will perform progressive HEP with I including gentle flexibility, core and LE strengthening, breathing and relaxation and balance exercises to improve pain and mobility by 10/14/21. LTG Duration 8 weeks 1 Supermarket Manager Goal (LTG) Pt will gait train at least 1200 feet in 6 minutes without AD to improve community ambulation by 10/14/21. LTG Duration 8 weeks Assessment Summary Assessment Progressed exercises today to include AROM body resisted LAQ and AP and balance exercises. Other strengthening exercises deferred d/t joint pain and changes. Will review exercises next treatment and then d/c the following one. Physical Therapy Plan Frequency and Duration Frequency of Treatment 2x/Week Duration of Treatment 8 weeks Plan of Care Start Date 08/11/21 Plan of Care End Date 10/14/21 Therapeutic Interventions Therapeutic Interventions Aquatic Therapy,Balance Training,Canalithic Repositioning,Gait Training, Home Exercise Program,Manual Therapy,Neuromuscular Re- education,Patient/Caregiver Education,Self-Care/Home Management,Soft Tissue Mobilization,Therapeutic Activities,Therapeutic Exercises Modalities Cold Pack/Ice Massage,Hot Packs Next Visit Focus/Plan Next Note Type Treatment Note Next Visit Plan Review HEP
--- NOTE | 2021-09-15 13:00 | PT.OTN ---
Current Diagnoses Other chronic pain (09/15/21) Low back pain, unspecified (09/15/21) Physical Therapy Treatment Note PT-OP-A Visit Information Start: 08/07/21 15:22 Freq: Status: Active Protocol: Document 09/15/21 12:15 SP (Rec: 09/15/21 13:02 SP [id number]) Out-Patient Physical Therapy Visit Information Visit Information Visit Type Treatment Note Visit Note Medicare 02/08 before KX for 2021 Visit Start Time 12:15 Visit Stop Time 13:00 Total Visit Minutes 45 Visit Number 7 Number of TRADING ANALYST Visits 1 Evaluation Information Evaluation Date 08/11/21 PT-OP-B Current Condition Start: 08/07/21 15:22 Freq: Status: Active Protocol: Document 08/11/21 09:51 MB (Rec: 08/11/21 10:12 MB [id number]) Current Condition History of Current Condition Onset Date One month ago Current Complaints Back pain History of Current Condition Pt states that she may be moving in the spring. Her 102 y/o mother lives with her. She has a condo with 18 steps. One day about a month ago, she did a lot of steps over a short period of time. She did a lot of shopping another day. She was given some gentle exercises by the doctor and that flared her up. She was given some muscle relaxers and they were helpful. Pt has a history of RA. She has RA in many joints including hands, shoulders and left knee. Her feet are really bad. That limits her walking. She has trouble with ADLs. She has a walk-in shower and seat in the shower. She has two infusions every six months. PMH includes OP and she just had a density exam and the image is in the EMR but there is no report. Pt has a history of decreased ROM in her neck. Pt states that she had history of LBP when standing and cooking. She thinks she had some muscle spasming as well that is better since the muscle relaxers. She has a history of falls about a year ago when she was on BP medication that she thinks dropped her BP. When she is semi reclined in the bed and tries to lift her hips, she has back pain. When she moves from sitting to standing, she gets LBP across the bottom of her back. Pt denies numbness and tingling in her legs. Pt is not a pool person. Pt reports 1-6/10 pain in her LB. She has pain in many joints from RA. Prior Treatments and Tests Lumbar x-ray 07/19/21: IMPRESSION: No acute compression deformities can be seen. Mild anterior wedge deformities of T12 and L1 can be seen, without acute features. Moderate levoconvex scoliosis. Multiple levels of prominent lumbar spine degenerative change are seen by plain film. Personal Factors Other Personal Factors That May Effect To decrease pain and to walk a Therapy/Recovery little more PT-OP-C Subjective Start: 08/07/21 15:22 Freq: Status: Active Protocol: Document 09/15/21 12:15 SP (Rec: 09/15/21 13:02 SP [id number]) OP-PT Subjective Patient Comments Patient Comments Pt reports not as stiff but not painfree yet but feels with doing the exercises and progress on own after next appt with PT will do well. Pt is aware can return if needed in the future. PT-OP-J Posture/Palpation/Skin Start: 08/07/21 15:22 Freq: Status: Active Protocol: Document 08/11/21 09:51 MB (Rec: 08/11/21 12:51 MB [id number]) Posture Evaluation Comments Posture Comments Standing in socks: foot and toe deformities, greater on the left and many toe surfaces not touching the floor and changing WB through the feet, flattened spine in general with decrease cervical lordosis, Dowager's hump, decreased thoracic kyphosis and lumbar lordosis, changes upper lumbar spine with some shifting of vertebral and pelvic posture with left iliac crest mildly higher than the right. Pt in long pants and left knee is mildly larger than the right, some left calf changes. PT-OP-K Range of Motion Start: 08/07/21 15:22 Freq: Status: Active Protocol: Document 08/11/21 09:51 MB (Rec: 08/11/21 12:51 MB [id number]) Shoulder Goniometric Range of Motion Shoulder ROM Limitations Comments B active shoulder flexion very reduced to no more than 60 deg and pt reports of degenerative changes in her shoulders from RA Finger Goniometric Range of Motion Finger ROM Limitations Comments Many finger changes that appear RA in nature Ankle and Foot Goniometric Range of Motion Ankle and Foot ROM Limitations Comments Many foot and toe changes that appear RA in nature PT-OP-Q Treatments Start: 08/07/21 15:22 Freq: Status: Active Protocol: Document 09/15/21 12:15 SP (Rec: 09/15/21 13:02 SP [id number]) Therapeutic Exercises Supine Exercises Hook lying clam Supine Exercise Name HEP reviewed Side bilateral Resistance Level 1 band around knees ( gave #2 for later progression) Reps/Minutes 10 reps (daily) Comments good verbalized squeeze glutes first Scapular retraction with thoracic lift Supine Exercise Name HEP reviewed Side bilateral Reps/Minutes 10 reps x5 sec (daily) Comments good performance, ed awareness for no LB arch engage TA if needed. Core progression Supine Exercise Name Abdominal drawing with pelvic tilt, knee rocking, HS, mini march, knee fall Resistance Small bridge x5 and no hold, knees apart mini march Reps/Minutes 10 reps all Comments Set position and then all exercises slowly and with thoughtfulness Lumbar rotation, gentle Reps/Minutes x10 Comments good performance, slow pacing control active HS stretch w/ AP Supine Exercise Name HEP reviewed Side bilateral Equipment Used Towel behind thigh Reps/Minutes 1 rep, 25-30 APs Comments good form and response for active HS stretch pelvic realignment ex Supine Exercise Name HEP reviewed- verbalized feel confident, not performed Side bilateral Equipment Used Towel use for third exercise Reps/Minutes 3x/wk Comments 5 rep, 3 sec hold all exercises Sitting Exercises LAQ with AP Side bilateral Reps/Minutes sometimes irritates knees but better after rolling massage self. Comments 5 reps each leg, alternating with AP performance Standing Exercises self STMs Standing Exercise Name quad, HS, calf, adductor, ITB Side bilateral Resistance added to HEP as needed Reps/Minutes 30 sec tolerant/ needed time Comments rolling/ rocking- response Neuro Re-Education Treatment Balance Activities FGA activities Reps/Duration hallway 3 laps each Comments Sliding fingers along rail and then wall: Pt to stand beside island at home with 1-2 finger tips along the counter as you do the following activities: 1-slow and fast walking; 2- vertical head nods; 3- horizontal head nods; 4- backwards walking; 5-walking with eyes closed. Pt to states does 5-8 minutes, 1x/day to 6x/wk - good self recovery off balance scissor step R over L when someone entered hallway quickly- cued tall scap/ core fac, feet apart for safety, foot clearance and pacing for safety, good self corrections postural alignment. PT-OP-T Assessment and Plan Start: 08/07/21 15:22 Freq: Status: Active Protocol: Document 09/15/21 12:15 SP (Rec: 09/15/21 13:02 SP [id number]) Physical Therapy Assessment Goals 4 Bellows Filler Goal (LTG) Pt will present with an improved Oswestery LBP score to reflect no more than 30% impairment to improve pain and quality of life by 10/14/21. LTG Duration 8 weeks 3 Bellows Filler Goal (LTG) Pt will perform WNLs on a standardized balance test to decrease fall risk by 10/14/21. LTG Duration 8 weeks 2 Bellows Filler Goal (LTG) Pt will perform progressive HEP with I including gentle flexibility, core and LE strengthening, breathing and relaxation and balance exercises to improve pain and mobility by 10/14/21. LTG Duration 8 weeks 1 Bellows Filler Goal (LTG) Pt will gait train at least 1200 feet in 6 minutes without AD to improve community ambulation by 10/14/21. LTG Duration 8 weeks Assessment Summary Assessment Pt good recall and performance to HEP, cued for safety pacing, increase MARCI at times needed and awareness of LLE foot clearance during hallway dynamic balance w/ core muscle stabilization to prevent stripping, improved elevated posture and safety balance. Self recovery of scissor step off balance when someone quickly entered hallway, contact wall for support. Pt good recall and performance of HEP, provided #2 TB loop for later progress supine clamshell when ready. Physical Therapy Plan Frequency and Duration Frequency of Treatment 2x/Week Duration of Treatment 8 weeks Plan of Care Start Date 08/11/21 Plan of Care End Date 10/14/21 Therapeutic Interventions Therapeutic Interventions Aquatic Therapy,Balance Training,Canalithic Repositioning,Gait Training, Home Exercise Program,Manual Therapy,Neuromuscular Re- education,Patient/Caregiver Education,Self-Care/Home Management,Soft Tissue Mobilization,Therapeutic Activities,Therapeutic Exercises Modalities Cold Pack/Ice Massage,Hot Packs Next Visit Focus/Plan Next Note Type Treatment Note Next Visit Plan Pt stated her and PT planned to DC her next appt. Answer any questions needed for I HEP next tx.
--- NOTE | 2021-09-17 10:29 | PT.OTN ---
Current Diagnoses Other chronic pain (09/17/21) Low back pain, unspecified (09/17/21) Physical Therapy Treatment Note PT-OP-A Visit Information Start: 08/07/21 15:22 Freq: Status: Active Protocol: Document 09/17/21 09:46 MB (Rec: 09/17/21 10:29 MB [id number]) Out-Patient Physical Therapy Visit Information Visit Information Visit Type Treatment Note Visit Note Medicare 03/10 before KX for 2021 Visit Start Time 09:46 Visit Stop Time 10:24 Total Visit Minutes 38 Visit Number 8 Number of PLUMBERS AND TOP HELPERS Visits 0 Evaluation Information Evaluation Date 08/11/21 PT-OP-B Current Condition Start: 08/07/21 15:22 Freq: Status: Active Protocol: Document 08/11/21 09:51 MB (Rec: 08/11/21 10:12 MB [id number]) Current Condition History of Current Condition Onset Date One month ago Current Complaints Back pain History of Current Condition Pt states that she may be moving in the spring. Her 102 y/o mother lives with her. She has a condo with 18 steps. One day about a month ago, she did a lot of steps over a short period of time. She did a lot of shopping another day. She was given some gentle exercises by the doctor and that flared her up. She was given some muscle relaxers and they were helpful. Pt has a history of RA. She has RA in many joints including hands, shoulders and left knee. Her feet are really bad. That limits her walking. She has trouble with ADLs. She has a walk-in shower and seat in the shower. She has two infusions every six months. PMH includes OP and she just had a density exam and the image is in the EMR but there is no report. Pt has a history of decreased ROM in her neck. Pt states that she had history of LBP when standing and cooking. She thinks she had some muscle spasming as well that is better since the muscle relaxers. She has a history of falls about a year ago when she was on BP medication that she thinks dropped her BP. When she is semi reclined in the bed and tries to lift her hips, she has back pain. When she moves from sitting to standing, she gets LBP across the bottom of her back. Pt denies numbness and tingling in her legs. Pt is not a pool person. Pt reports 1-6/10 pain in her LB. She has pain in many joints from RA. Prior Treatments and Tests Lumbar x-ray 07/19/21: IMPRESSION: No acute compression deformities can be seen. Mild anterior wedge deformities of T12 and L1 can be seen, without acute features. Moderate levoconvex scoliosis. Multiple levels of prominent lumbar spine degenerative change are seen by plain film. Personal Factors Other Personal Factors That May Effect To decrease pain and to walk a Therapy/Recovery little more PT-OP-C Subjective Start: 08/07/21 15:22 Freq: Status: Active Protocol: Document 09/17/21 09:46 MB (Rec: 09/17/21 10:29 MB [id number]) OP-PT Subjective Patient Comments Patient Comments Pt states that she is feeling pretty good. Her left knee has been bothering her. She has not been performing LAQ as much. PT-OP-J Posture/Palpation/Skin Start: 08/07/21 15:22 Freq: Status: Active Protocol: Document 08/11/21 09:51 MB (Rec: 08/11/21 12:51 MB [id number]) Posture Evaluation Comments Posture Comments Standing in socks: foot and toe deformities, greater on the left and many toe surfaces not touching the floor and changing WB through the feet, flattened spine in general with decrease cervical lordosis, Dowager's hump, decreased thoracic kyphosis and lumbar lordosis, changes upper lumbar spine with some shifting of vertebral and pelvic posture with left iliac crest mildly higher than the right. Pt in long pants and left knee is mildly larger than the right, some left calf changes. PT-OP-K Range of Motion Start: 08/07/21 15:22 Freq: Status: Active Protocol: Document 08/11/21 09:51 MB (Rec: 08/11/21 12:51 MB [id number]) Shoulder Goniometric Range of Motion Shoulder ROM Limitations Comments B active shoulder flexion very reduced to no more than 60 deg and pt reports of degenerative changes in her shoulders from RA Finger Goniometric Range of Motion Finger ROM Limitations Comments Many finger changes that appear RA in nature Ankle and Foot Goniometric Range of Motion Ankle and Foot ROM Limitations Comments Many foot and toe changes that appear RA in nature PT-OP-Q Treatments Start: 08/07/21 15:22 Freq: Status: Active Protocol: Document 09/17/21 09:46 MB (Rec: 09/17/21 10:29 MB [id number]) Therapeutic Exercises Supine Exercises Hook lying clam Comments Verbally reviewed today Scapular retraction with thoracic lift Comments Verbally reviewed today Core progression Comments Verbally reviewed today Lumbar rotation, gentle Comments Verbally reviewed today active HS stretch w/ AP Comments Verbally reviewed today diaphramatic breath Comments Verbally reviewed today pelvic realignment ex Comments Verbally reviewed today Sitting Exercises LAQ with AP Comments Verbally reviewed Gait Training Gait Activity 6MWT Comments 09/17/21: Pt gait trains 1184 feet in 6 minutes and this is an improvement for pt. She presents with functional left foot drop and some imbalance and decreased arm swing B. Her gait is similar throughout treatment Neuro Re-Education Treatment Balance Activities FGA activities Comments 09/17/21: Pt performs her balance exercises that are still challenging: FGA exercises in the hallway. Pt performs fast and slow walking , horizontal and vertical head turns, EC and backwards walking. Pt has most trouble with backwards walking and she slides hand along wall for all exercises PT-OP-T Assessment and Plan Start: 08/07/21 15:22 Freq: Status: Active Protocol: Document 09/17/21 09:46 MB (Rec: 09/17/21 10:29 MB [id number]) Physical Therapy Assessment Rehab Potential Rehabilitation Potential Fair Evaluation Complexity Number of Personal Factors/Comorbidities 1-2 Number of Body Systems Impaired 3 Clinical Presentation at Evaluation Evolving Impairments Impairments Activity Tolerance,Balance, Functional Activities, Functional Mobility,Gait,Pain, Posture,ROM,Soft Tissue Mobility,Strength Other Impairments Personal factors include pt has 18 steps to enter her home . She also has her 102 y/o mother living with her. Body systems affected include musculoskeletal, neuromuscular and metabolic. Her clinical presentation is evolving in setting of OP, RA, history of compression fractures. Other Concerns Fall Risk Yes Goals 4 Scrap Metal Burner Goal (LTG) Pt will present with an improved Oswestery LBP score to reflect no more than 30% impairment to improve pain and quality of life by 10/14/21. 09/17/21: Oswestry LBP score reflects 32% impairment LTG Duration Progressed towards goal 3 Long-Term Goal (LTG) Pt will perform WNLs on a standardized balance test to decrease fall risk by 10/14/21. 09/17/21: Pt performs her balance exercises that are still challenging: FGA exercises in the hallway. Pt performs fast and slow walking , horizontal and vertical head turns, EC and backwards walking. Pt has most trouble with backwards walking and she slides hand along wall for all exercises LTG Duration Some progress towards goal 2 Long-Term Goal (LTG) Pt will perform progressive HEP with I including gentle flexibility, core and LE strengthening, breathing and relaxation and balance exercises to improve pain and mobility by 10/14/21. 09/17/21: Pt is performing pelvic realignment exercises, diaphragm breathing, hamstring stretch, LAQ with AP, she occ uses racquet ball for massage , she is performing core exercises, lumbar rotation, clam with band, scapular retraction, balance exercises. LTG Duration Met 1 Scrap Metal Burner Goal (LTG) Pt will gait train at least 1200 feet in 6 minutes without AD to improve community ambulation by 10/14/21. 09/17/21: Pt gait trains 1184 feet in 6 minutes and this is an improvement for pt. She presents with functional left foot drop and some imbalance and decreased arm swing B. LTG Duration Progressed towards goal Assessment Summary Assessment Pt has progressed towards all PT goals since starting PT. These include 6MWT, back pain, balance and exercise goals. Multi-joint RA and functional left foot drop have been barriers to full goal meeting. She is ready to d/c PT.
== END 2021-09-27 00:35 ==
LOC: PHYS 09:45
PROVIDERS: Family Provider Family Medicine; PCP Family Medicine; Referring Provider Family Medicine; Visit Provider Family Medicine
DX: M54.50 Low back pain, unspecified (principal); G89.29 Other chronic pain
CPT/HCPCS: 97110; 97112; 97116; 97140; 97161; 97535